=== PATIENT | female | born 1995 | race Caucasian/White ===

== ENCOUNTER 2017-10-29 07:37 | Emergency (ER) | END 2017-10-29 09:38 | disposition home or self-care (01) ==

== ENCOUNTER 2018-01-15 15:26 | Emergency (ER) | END 2018-01-15 19:14 | disposition home or self-care (01) ==

== ENCOUNTER 2018-09-17 16:38 | Emergency (ER) | payer OTHER ==
[~2018-09-17] VITALS: Ht 167.6 cm; Wt 134.1 kg
[~2018-09-17 16:38] MED LIST: BENZ200C68 PO; CYCL10TA7 PO; FAMO-96 PO; FLUT9.9S NASAL; IBUP-1542 PO; ONDA4TAB14 PO; PHEN177S43 MT
[2018-09-17 16:57] VITALS: BP 157/79; PULSE 76; RESP 18; Ht 167.6 cm; Wt 134.1 kg
[2018-09-17] MEDS ORDERED: HYDR28.334 TP (17:17)
[2018-09-17] MEDS ORDERED: CLOT30CR24 TOP (17:17)
[2018-09-17] MEDS ORDERED: CEPH-443 PO (17:18)
--- NOTE | 2018-09-17 17:25 | ERD ---
ER Documentation Chief Complaint Chief Complaint painful, itchy rash left ear & chest area x2wks, ringworm per pt HPI 20-year-old female past medical history of eczema presents for itchy rash x2 weeks. She states that she may have ringworms. She has any cat. The rash is over the left ear and chest area. She also has rash over her groin area. She has been taking [id number] fungal cream with some relief however she switched to the spray because the medication was too expensive. States that that was when the rash returned. She denies fevers or chills. Denies cough, runny nose. Denies shortness of breath or chest pain. No other modifying factors noted. No other treatments tried at home. ROS All systems reviewed and are negative except as per history of present illness. Medications Home Meds Active Scripts Cephalexin* (Keflex*) 500 Mg Capsule, 500 MG PO TID for skin infection for 7 Days, #21 CAP Prov:LAINERAYMOND 09/17/18 Hydrocortisone (Hydrocortisone Cr) 28.35 Gm Cr, 28.35 GM TP BID PRN for ITCHING for 7 Days, #1 TUBE Prov:RAYMOND JANG DO 09/17/18 Clotrimazole* (Clotrimazole* AF) 1% - 30 Gm Cream.gm., 1 APPLIC TOP BID for fungal skin infection for 7 Days, TUB Prov:LAINERAYMOND 09/17/18 Ibuprofen* (Motrin*) 600 Mg Tab, 600 MG PO Q6, #30 TAB Prov:ZAYDA TRACEY PA-C 01/15/18 Phenol* (Chloraseptic* [place]) 177 Ml [place].pump, 2 SPRAY MT Q2H PRN for SORE THROAT, #1 BOTTLE Prov:ZAYDA TRACEY PA-C 01/15/18 Fluticasone Propionate (Flonase Allergy Relief) 9.9 Ml [place].susp, 1 SPRAY NASAL BID, #1 BOTTLE TO EACH NOSTRIL Prov:ZAYDA TRACEY PA-C 01/15/18 Benzonatate* (Benzonatate*) 200 Mg Capsule, 200 MG PO TID PRN for COUGH, #15 CAP Prov:ZAYDA TRACEY PA-C 01/15/18 Ondansetron (Ondansetron Odt) 4 Mg Tab.rapdis, 4 MG PO Q6H PRN for NAUSEA AND/OR VOMITING, #10 TAB Prov:ROSELINEOMAR CUEVA 10/29/17 Famotidine* (Pepcid*) 20 Mg Tablet, 20 MG PO BID for 30 Days, TAB Prov:MILVIA DUKESWHITNEY CUEVA 10/29/17 Cyclobenzaprine Hcl* (Cyclobenzaprine Hcl*) 10 Mg Tablet, 10 MG PO TID, #15 TAB Prov:VITOR CUNNINGHAM NP 10/26/15 Allergies Allergies: Coded Allergies: No Known Allergy (Unverified , 10/26/15) PMhx/Soc History of Surgery: No Anesthesia Reaction: No Hx Neurological Disorder: No Hx Respiratory Disorders: No Hx Cardiac Disorders: No Hx Psychiatric Problems: No Hx Miscellaneous Medical Probl: No Hx Alcohol Use: No Hx Substance Use: No Hx Tobacco Use: No Physical Exam Vitals Vital Signs Date Temp Pulse Resp B/P (MAP) Pulse Ox O2 O2 Flow FiO2 Time Delivery Rate 09/17/18 98.7 76 18 157/79 100 16:57 (105) Physical Exam Const: No acute distress Resp: Clear to auscultation bilaterally Cardio: Regular rate and rhythm, no murmurs Abd: Soft, non tender, non distended. Normal bowel sounds Skin: Circular erythematous rash noted over the upper chest, left ear area, groin area (examination with nursing staff at bedside) Back: No midline or flank tenderness Ext: No cyanosis, or edema Neur: Awake and alert Psych: Normal Mood and Affect Procedures/MDM Medical Decision Making: Differential diagnosis includes but not limited to tinea corporis, cellulitis, dermatitis, allergic reaction Patient appeared well on physical exam. Examination is consistent with a ringworm infection There is also cellulitis noted over the left ear area Prescription(s): Patient given prescription for supportive medication(s). Patient advised to follow up with PCP in 1-2 days. Advised that she may need referral to dermatology. Patient agrees with plan. Patient advised to return to ED for new or worsening symptoms. Patient stable on discharge from the ED. Disclaimer: Inadvertent spelling and grammatical errors are likely due to EHR/dictation software use and do not reflect on the overall quality of patient care. Also, please note that the electronic time recorded on this note does not necessarily reflect the actual time of the patient encounter. Departure Diagnosis: Primary Impression: Rash Additional Impression: Cellulitis Site of cellulitis: face Qualified Codes: L03.211 - Cellulitis of face Condition: Fair Patient Instructions: Self-Care for Skin Rashes Referrals: [facility] YOU HAVE RECEIVED A MEDICAL SCREENING EXAM AND THE RESULTS INDICATE THAT YOU DO NOT HAVE A CONDITION THAT REQUIRES URGENT TREATMENT IN THE EMERGENCY DEPARTMENT. FURTHER EVALUATION AND TREATMENT OF YOUR CONDITION CAN WAIT UNTIL YOU ARE SEEN IN YOUR DOCTORS OFFICE WITHIN THE NEXT 1-2 DAYS. IT IS YOUR RESPONSIBILITY TO MAKE AN APPOINTMENT FOR FOLOW-UP CARE. IF YOU HAVE A PRIMARY DOCTOR --you should call your primary doctor and schedule an appointment IF YOU DO NOT HAVE A PRIMARY DOCTOR YOU CAN CALL OUR PHYSICIAN REFERRAL HOTLINE AT IF YOU CAN NOT AFFORD TO SEE A PHYSICIAN YOU CAN CHOSE FROM THE FOLLOWING [facility] [address] [facility]. [facility] [address] [facility] [address] [facility] [address] [facility]. [facility] [address] [facility]. [facility]. [address] Additional Instructions: Call your primary care doctor TOMORROW for an appointment during the next 1-2 days.See the doctor sooner or return here if your condition worsens before your appointment time. Recommend follow up with dermatology. Get referral from PCP. RAYMOND JANG DO Sep 17, 2018 17:25
== END 2018-09-17 17:25 | disposition home or self-care (01) ==
LOC: FTE 16:38 → E/R 17:25
DX: L03.211 Cellulitis of face (principal)
CPT/HCPCS: 99283

== ENCOUNTER 2018-11-24 22:02 | Emergency (ER) | payer SELFPAY ==
[~2018-11-24] VITALS: Ht 165.1 cm; Wt 132.0 kg
[~2018-11-24 22:02] MED LIST changes: +CEPH-443 PO; +CLOT30CR24 TOP; +HYDR28.334 TP
[2018-11-24 22:06] VITALS: BP 149/68; PULSE 79; RESP 18; Ht 165.1 cm; Wt 132.0 kg
[2018-11-25] MEDS ORDERED: MECL12.574 PO (23:30)
[2018-11-25] MEDS ORDERED: NPH10OT RIGHT EAR (23:30)
== END 2018-11-24 23:42 | disposition left against medical advice (07) ==
LOC: FTE 22:02
DX: Z53.21 Procedure and treatment not carried out due to patient leaving prior to being seen by health care provider (principal)

== ENCOUNTER 2018-11-25 22:21 | Emergency (ER) | payer OTHER ==
[~2018-11-25] VITALS: Ht 165.1 cm; Wt 132.9 kg
[2018-11-25 22:31] VITALS: BP 131/79; PULSE 74; RESP 16; Ht 165.1 cm; Wt 132.9 kg
[2018-11-25] MEDS ORDERED: NPH10OT RIGHT EAR (23:30)
[2018-11-25] MEDS ORDERED: MECL12.574 PO (23:30)
--- NOTE | 2018-11-25 23:47 | ERD ---
ER Documentation Chief Complaint Chief Complaint PT reports drainage to R ear and dizziness HPI 23-year-old female presenting with right ear irritation and dizziness. States she has been dizzy the last 2 days but denies any headaches or visual changes. No recent head trauma no vomiting. No fevers. Denies neck stiffness. Patient states that she has some mild irritation in her right ear. Denies medical problems. NKDA. Surgical history denies. Social history denies ROS All systems reviewed and are negative except as per history of present illness. Medications Home Meds Active Scripts Neomycin/Polymyxin/Hydrocort* (Cortisporin* Otic) 10 Ml Susp, 4 DROP RIGHT EAR QID for 7 Days, EA Prov:NICOLASA JAIME PA-C 11/25/18 Meclizine Hcl* (Antivert*) 12.5 Mg Tab, 12.5 MG PO Q6H PRN for DIZZINESS, #20 TAB Prov:NICOLASA JAIME PA-C 11/25/18 Cephalexin* (Keflex*) 500 Mg Capsule, 500 MG PO TID for skin infection for 7 Days, #21 CAP Prov:RAYMOND JANG DO 09/17/18 Hydrocortisone (Hydrocortisone Cr) 28.35 Gm Cr, 28.35 GM TP BID PRN for ITCHING for 7 Days, #1 TUBE Prov:RAYMOND JANG DO 09/17/18 Clotrimazole* (Clotrimazole* AF) 1% - 30 Gm Cream.gm., 1 APPLIC TOP BID for fungal skin infection for 7 Days, TUB Prov:RAYMOND JANG DO 09/17/18 Ibuprofen* (Motrin*) 600 Mg Tab, 600 MG PO Q6, #30 TAB Prov:ZAYDA TRACEY PA-C 01/15/18 Phenol* (Chloraseptic* [place]) 177 Ml [place].pump, 2 SPRAY MT Q2H PRN for SORE THROAT, #1 BOTTLE Prov:ZAYDA TRACEY PA-C 01/15/18 Fluticasone Propionate (Flonase Allergy Relief) 9.9 Ml [place].susp, 1 SPRAY NASAL BID, #1 BOTTLE TO EACH NOSTRIL Prov:ZAYDA TRACEY PA-C 01/15/18 Benzonatate* (Benzonatate*) 200 Mg Capsule, 200 MG PO TID PRN for COUGH, #15 CAP Prov:ZAYDA TRACEY PA-C 01/15/18 Ondansetron (Ondansetron Odt) 4 Mg Tab.rapdis, 4 MG PO Q6H PRN for NAUSEA AND/OR VOMITING, #10 TAB Prov:OMAR DUKES PA-C 10/29/17 Famotidine* (Pepcid*) 20 Mg Tablet, 20 MG PO BID for 30 Days, TAB Prov:OMAR DUKES PA-C 10/29/17 Cyclobenzaprine Hcl* (Cyclobenzaprine Hcl*) 10 Mg Tablet, 10 MG PO TID, #15 TAB Prov:VITOR CUNNINGHAM NP 10/26/15 Allergies Allergies: Coded Allergies: No Known Allergy (Unverified , 10/26/15) PMhx/Soc Medical and Surgical Hx: pt denies Medical Hx, pt denies Surgical Hx History of Surgery: No Anesthesia Reaction: No Hx Neurological Disorder: No Hx Respiratory Disorders: No Hx Cardiac Disorders: No Hx Psychiatric Problems: No Hx Miscellaneous Medical Probl: No Hx Alcohol Use: No Hx Substance Use: No Hx Tobacco Use: No Smoking Status: Never smoker FmHx Family History: No diabetes, No coronary disease, No other Physical Exam Vitals Vital Signs Date Temp Pulse Resp B/P (MAP) Pulse Ox O2 O2 Flow FiO2 Time Delivery Rate 11/25/18 98.1 74 16 131/79 100 22:31 (96) Physical Exam GENERAL: The patient is well-appearing, well-nourished, in no acute distress HEENT: Atraumatic. Conjunctivae are pink. Pupils equal, round, and reactive to light. There is no scleral icterus. Tympanic membranes clear bilaterally. Oropharynx clear. Internal ear canal the right ear is inflamed. NECK: C-spine is soft and supple. There is no meningismus. There is no cervical lymphadenopathy. CHEST: Clear to auscultation bilaterally. There are no rales, wheezes or rhonchi. HEART: Regular rate and rhythm. No murmurs, clicks, rubs or gallops. NEUROLOGIC: Alert and oriented. Cranial nerves II through XII intact. Motor strength in all 4 extremities with 5 out of 5 strength. Sensation grossly intact. Normal speech and gait. Procedures/MDM MDM: 23-year-old female presenting with dizziness. Patient's neuro exam is within normal limits. I have low suspicion for intracranial hemorrhage or neuro deficit and I do not feel there is indication for CT scan or imaging. Patient's ear exam is concerning for a otitis externa infection I will treat with otic drops. Patient is discharged with supportive medications. Patient is told symptoms change or worsen to return immediately to the ER. All questions answered at discharge Departure Diagnosis: Primary Impression: Dizziness Additional Impression: Right ear pain Condition: Stable Patient Instructions: Inner Ear Problems: Causes of Dizziness (Vertigo), Dizz iness, Unk Cause Referrals: [facility] YOU HAVE RECEIVED A MEDICAL SCREENING EXAM AND THE RESULTS INDICATE THAT YOU DO NOT HAVE A CONDITION THAT REQUIRES URGENT TREATMENT IN THE EMERGENCY DEPARTMENT. FURTHER EVALUATION AND TREATMENT OF YOUR CONDITION CAN WAIT UNTIL YOU ARE SEEN IN YOUR DOCTORS OFFICE WITHIN THE NEXT 1-2 DAYS. IT IS YOUR RESPONSIBILITY TO MAKE AN APPOINTMENT FOR FOLOW-UP CARE. IF YOU HAVE A PRIMARY DOCTOR --you should call your primary doctor and schedule an appointment IF YOU DO NOT HAVE A PRIMARY DOCTOR YOU CAN CALL OUR PHYSICIAN REFERRAL HOTLINE AT IF YOU CAN NOT AFFORD TO SEE A PHYSICIAN YOU CAN CHOSE FROM THE FOLLOWING [facility] [address] [facility]. [facility] [address] [facility] [facility] [address] [facility] [facility] [address] [facility] [facility] [address] [facility]. [facility]. [address] Additional Instructions: FOLLOW UP WITH YOUR PRIMARY CARE PHYSICIAN TOMORROW.Return to this facility if you are not improving as expected. NICOLASA JAIME PA-C Nov 25, 2018 23:47
== END 2018-11-25 23:55 | disposition home or self-care (01) ==
LOC: FTE 22:21
DX: R42 Dizziness and giddiness (principal); H92.01 Otalgia, right ear
CPT/HCPCS: 99283